=== PATIENT | male | born 1990 | race Caucasian/White ===

== ENCOUNTER 2016-12-19 03:12 | Emergency (ER) | payer SELFPAY ==
[2016-12-19] MEDS ORDERED: DIPH/PERTUSS(ACELL)/TETANUS VAC/PF 0.5 ML SYR (>=10YO) IM ONE (03:25)
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
[2016-12-19] MEDS ORDERED: LIDOCAINE 1% INJ (10 MG/ML) 10 ML MDV INJ ONE (03:50)
[2016-12-19] MEDS ORDERED: LIDOCAINE 1% INJ-PF (10 MG/ML) 30 ML SDV ONE (03:56)
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
[2016-12-19 05:06] VITALS: BP 124/88
== END 2016-12-19 05:11 | disposition home or self-care (01) ==
LOC: ER 03:12
PROC: 0HQ7XZZ Repair Abdomen Skin, External Approach (ICD-10-PCS; principal; 2016-12-19)
DX: S31.119A Laceration without foreign body of abdominal wall, unspecified quadrant without penetration into peritoneal cavity, initial encounter (principal); W26.0XXA Contact with knife, initial encounter; F17.200 Nicotine dependence, unspecified, uncomplicated
CPT/HCPCS: 71010; 74177; 90471; 90715; 99284

== ENCOUNTER 2017-07-27 18:28 | Emergency (ER) | payer MEDICAID ==
[2017-07-27] MEDS ORDERED: KETOROLAC TROMETHAMINE INJ/PF 30 MG/1 ML SDV IM ONE (19:01)
--- NOTE | 2017-07-27 19:05 | ER Document Report ---
ED Flu Like - General Chief Complaint: Low Back Pain Stated Complaint: COUGH Time Seen by Provider: 07/27/17 18:45 Mode of Arrival: Ambulatory Information source: Patient TRAVEL OUTSIDE OF THE [place] IN LAST 30 DAYS: No - HPI Patient complains to provider of: flu like symptoms Onset: Other - 3 days Notes: Patient is here with complaints of cough, sore throat, body aches, left-sided back pain is been present for about 3 days. The pack pain started after he was coughing a lot. Pain in his back is located in the left thoracic/lumbar paraspinal muscle area. It is worse with touching the area as well as coughing and movement. He denies any direct trauma to this area. He is on blood thinning medications. He denies any IV drug use. He denies any bowel or bladder dysfunction. Patient also states that he has had a sore throat for the last few days. Been feeling hot and cold and complains of generalized sensitivity to his whole body. States that he has had the flu and pneumonia in the past and he feels like he may have this again. He denies any abdominal pain. He states that he vomited twice today. The first time he noticed there was a little bit of red in the vomit. The second time he vomited there was no red and there is no coffee-ground type emesis. He is on no blood thinning medications. No rashes. No neck stiffness. No numbness, tingling, weakness. No chest pain or difficulty breathing. He denies any other complaints at this time. - Related Data Allergies/Adverse Reactions: No Known Allergies Allergy (Verified 07/27/17 18:29) Past Medical History - Social History Smoking Status: Current Every Day Smoker Family History: Reviewed & Not Pertinent Psychiatric Medical History: Reports: Hx Attention Deficit Hyperactivity Disorder, Hx Bipolar Disorder, Hx Depression - old - Immunizations Hx Diphtheria, Pertussis, Tetanus Vaccination: Yes Review of Systems - Review of Systems -: Yes All other systems reviewed and negative Physical Exam - Vital signs Vitals: Temp Pulse Resp BP Pulse Ox 99.3 F 112 H 18 121/80 97 07/27/17 18:33 07/27/17 18:33 07/27/17 18:33 07/27/17 18:33 07/27/17 18:33 - Notes Notes: GENERAL: alert, cooperative, nontoxic, no distress. HEAD: normocephalic, atraumatic EYES: conjunctiva pink without discharge, no external redness or swelling. EARS: no external swelling, no external redness NOSE: atraumatic, no external swelling MOUTH/THROAT: mucous membranes moist and pink, posterior pharynx without erythema, swelling, exudate. No trismus or drooling. NECK: soft, supple, full range of motion, no meningismus. CHEST: no distress, lungs clear and equal throughout. No wheezing, rales, rhonchi. CARDIAC: regular rate and rhythm, no murmur, normal capillary refill, normal pulses. No peripheral edema noted. ABDOMEN: soft, nontender, no pusatile mass. BACK: No CVA tenderness. Mild tenderness with mild muscle spasm along the left thoracic and lumbar paraspinal muscles. No rash. No midline tenderness step- offs or crepitus. Range of motion. EXTREMITIES: full range of motion of all extremities. No redness, no swelling. NEURO: alert and oriented A&O x 3, no focal deficits, full range of motion of all extremities. 5 out of 5 flexion and extension of the lower extremities bilaterally. Patellar and Achilles deep tendon reflexes are +2 bilaterally. Normal sensation with no saddle anesthesia. Patient can dorsiflex the great toes bilaterally. PYSCH: appropriate mood, affect. Patient is cooperative. SKIN: pink, warm, dry, no rash. Course - Re-evaluation Re-evalutation: 07/27/17 20:20 Patient is nontoxic appearing stable vitals. Patient is here with complaints of back pain, cough, sore throat. He does report vomiting twice today. He states the first time he vomited there was something bright red in his vomit but then he vomited again and there was no bright red. No obvious blood and no coffee ground. He has no reason to have any bleeding and is having no abdominal pain and has no abdominal tenderness. Back pain is reproducible along the thoracic paraspinal muscles and is likely secondary to some muscle spasm and cough. He has some viral type symptoms consistent with possible influenza or viral syndrome. Chest x-ray shows no acute abnormality and rapid strep is negative. At this point patient can be discharged home with Naprosyn and Tessalon. Instructions to rest, drink plenty fluids, follow-up if not better in the next 3-5 days. Follow-up sooner for worsening pain, fever, difficulty breathing or swallowing, severe abdominal pain, persistent vomiting, or for any further concerns. The patient has no sign or risk of cauda equina, epidural abscess/bleed, osteomyelitis, discitis, AAA, pyelonephritis. The patient is noted to have elevated blood pressure during today's emergency department visit. The patient was informed of this finding. The patient was instructed that this may be related to pre-hypertension and requires further evaluation with a primary care provider. The patient has no hypertensive symptoms at this time. The patient's emergency department workup and current diagnosis were explained to the patient and or family. Follow-up instructions were provided. Medications if prescribed were discussed. Instructions for when to return to the emergency department including specific worrisome symptoms were discussed with the patient and/or family. - Vital Signs Vital signs: Temp Pulse Resp BP Pulse Ox 99.3 F 112 H 18 121/80 97 07/27/17 18:33 07/27/17 18:33 07/27/17 18:33 07/27/17 18:33 07/27/17 18:33 - Diagnostic Test Radiology reviewed: Image reviewed, Reports reviewed - Chest x-ray negative Discharge - Discharge Clinical Impression: Viral syndrome Condition: Stable Disposition: HOME, SELF-CARE Instructions: Low Back Pain ([facility]), Viral Syndrome ([facility]), Family Physicians / Practices Additional Instructions: Take medications as prescribed. You may also take Tylenol as needed for pain. Drink plenty of fluids. Follow-up with your doctor if not better in 3-5 days, sooner for worsening pain, fever, difficulty breathing or swallowing, persistent vomiting, severe abdominal pain, or for any further concerns. Your blood pressure was elevated during today's visit. Have this rechecked with your doctor. Prescriptions: Benzonatate [Tessalon Perle 100 mg Capsule] 100 mg PO Q8HP PRN #20 cap PRN Reason: Naproxen [Naprosyn] 500 mg PO BID #20 tablet Forms: Elevated Blood Pressure, Smoking Cessation Education Referrals: [facility] [Provider Group] - Follow up as needed
--- NOTE | 2017-07-27 20:09 | RADIOLOGY REPORT (SQ) ---
EXAM DESCRIPTION: CHEST 2 VIEWS COMPLETED DATE/TIME: 07/27/2017 7:22 pm REASON FOR STUDY: cough COMPARISON: None. EXAM PARAMETERS: NUMBER OF VIEWS: two views TECHNIQUE: Digital Frontal and Lateral radiographic views of the chest acquired. RADIATION DOSE: NA LIMITATIONS: none FINDINGS: LUNGS AND PLEURA: No opacities, masses or pneumothorax. No pleural effusion. MEDIASTINUM AND HILAR STRUCTURES: No masses or contour abnormalities. HEART AND VASCULAR STRUCTURES: Heart normal size. No evidence for failure. BONES: No acute findings. HARDWARE: None in the chest. OTHER: No other significant finding. IMPRESSION: NO ACUTE RADIOGRAPHIC FINDING IN THE CHEST. TECHNICAL DOCUMENTATION: JOB ID: [id number]- All Rights Reserved Reading location - IP/workstation name: [email or web address]
[2017-07-27 20:36] VITALS: BP 121/76
== END 2017-07-27 20:37 | disposition home or self-care (01) ==
LOC: ER 18:28
DX: B34.9 Viral infection, unspecified (principal); R05 Cough; J02.9 Acute pharyngitis, unspecified; M62.830 Muscle spasm of back; M54.5 Low back pain; M54.6 Pain in thoracic spine; R11.10 Vomiting, unspecified; F17.200 Nicotine dependence, unspecified, uncomplicated; R03.0 Elevated blood-pressure reading, without diagnosis of hypertension; Z87.01 Personal history of pneumonia (recurrent)
CPT/HCPCS: 99283; 96372; 87070; 87880; 71046; J1885

== ENCOUNTER 2017-11-26 19:12 | Emergency (ER) | payer MEDICAID ==
[2017-11-26] MEDS ORDERED: LORAZEPAM 1 MG TABLET PO ONE (20:44)
[2017-11-26] MEDS ORDERED: HALOPERIDOL 5 MG TABLET PO ONE (20:44)
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
[2017-11-26 20:56] LABS: ABSOLUTE BASOPHILS # (AUTO) 0.1 10^3/uL (0.0-0.2); ABSOLUTE EOSINOPHILS # (AUTO) 0.2 10^3/uL (0.0-0.6); ABSOLUTE LYMPHOCYTES (AUTO) 1.9 10^3/uL (0.5-4.7); ABSOLUTE MONOCYTES (AUTO) 0.6 10^3/uL (0.1-1.4); ABSOLUTE NEUT (AUTO) 4.4 10^3/uL (1.7-8.2); BASOPHILS % (AUTO) 1.1 % (0-2); EOSINOPHILS % (AUTO) 2.6 % (0-6); HEMATOCRIT 41.5 % (37.9-51.0); HEMOGLOBIN 14.5 g/dL (13.5-17.0); LYMPHOCYTES % (AUTO) 26.6 % (13-45); MEAN CORPUSCULAR HEMOGLOBIN 30.1 pg (27.0-33.4); MEAN CORPUSCULAR VOLUME 86 fl (80-97); MONOCYTES % (AUTO) 8.7 % (3-13); PLATELET COUNT 259 10^3/uL (150-450); RED BLOOD COUNT 4.83 10^6/uL (4.35-5.55); RED CELL DISTRIBUTION WIDTH 12.8 % (11.5-14.0); TOTAL CELLS COUNTED % (AUTO) 100 %; WHITE BLOOD COUNT 7.3 10^3/uL (4.0-10.5)
[2017-11-26 21:16] LABS: ALANINE AMINOTRANSFERASE 23 U/L (21-72); ALBUMIN 3.9 g/dL (3.5-5.0); ALKALINE PHOSPHATASE 54 U/L (38-126); ANION GAP 11 (5-19); ASPARTATE AMINO TRANSFERASE 21 U/L (17-59); BILIRUBIN,DIRECT 0.3 mg/dL (0.0-0.4); BILIRUBIN,TOTAL 0.7 mg/dL (0.2-1.3); BLOOD UREA NITROGEN 19 mg/dL (7-20); CALCIUM 9.4 mg/dL (8.4-10.2); CARBON DIOXIDE 23 mmol/L (22-30); CHLORIDE 112 mmol/L (98-107); GLUCOSE 89 mg/dL (75-110); POTASSIUM 3.6 mmol/L (3.6-5.0); TOTAL PROTEIN 6.3 g/dL (6.3-8.2)
[2017-11-26 21:26] LABS: ACETAMINOPHEN < 10 ug/mL (10-30); ALCOHOL < 10 mg/dL (NONE DETECTED); SALICYLATE < 1.0 mg/dL (2.0-20.0)
[2017-11-26 21:48] LABS: APPEARANCE,URINE CLEAR; BILIRUBIN,URINE NEGATIVE (NEGATIVE); GLUCOSE, URINE NEGATIVE (NEGATIVE); KETONES,URINE TRACE mg/dL (NEGATIVE); LEUKOCYTE ESTERASE,URINE NEGATIVE (NEGATIVE); NITRITE,URINE NEGATIVE (NEGATIVE); PROTEIN,URINE NEGATIVE (NEGATIVE); URINE SPECIFIC GRAVITY 1.026
[2017-11-26 21:49] LABS: COLOR,URINE YELLOW
[2017-11-26 22:05] LABS: URINE AMPHETAMINES SCREEN NEGATIVE; URINE BARBITURATES SCREEN NEGATIVE; URINE BENZODIAZEPINES SCREEN NEGATIVE; URINE COCAINE SCREEN NEGATIVE; URINE MARIJUANA (THC) SCREEN NEGATIVE; URINE METHADONE SCREEN NEGATIVE; URINE PHENCYCLIDINE SCREEN NEGATIVE
--- NOTE | 2017-11-27 05:35 | EKG REPORT ---
SEVERITY:- ABNORMAL ECG - SINUS RHYTHM PROBABLE LEFT ATRIAL ABNORMALITY PROBABLE LEFT VENTRICULAR HYPERTROPHY : Confirmed by: Jeevan Rodarte MD 27-Nov-2017 05:34:41
--- NOTE | 2017-11-27 10:47 | ER Document Report ---
Doctor's Note Notes: 11/27/17 10:43 Rounds: Chart reviewed and patient sleeping so not awakened. Patient is being evaluated for bipolar disorder, erratic behavior, agitation, delusions. Vital signs are all normal. Lab studies were all essentially normal. Patient appears to be medically stable for transfer or discharge. Lacey Fischer MD
[2017-11-27 11:14] VITALS: BP 125/83
[2017-11-27] MEDS ORDERED: BENZTROPINE MESYLATE 1 MG TABLET PO ONE (12:37)
[2017-11-27] MEDS ORDERED: CHLORPROMAZINE HCL 50 MG TABLET PO ONE (12:37)
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
== END 2017-11-27 13:11 | disposition home or self-care (01) ==
LOC: ER 19:12
DX: R45.1 Restlessness and agitation (principal); F31.9 Bipolar disorder, unspecified; F29 Unspecified psychosis not due to a substance or known physiological condition; F17.200 Nicotine dependence, unspecified, uncomplicated
CPT/HCPCS: 93005; 99285; 36415; 80307 ×4; 85025; 80053; 81001; 93010; J3490 ×3

== ENCOUNTER 2018-01-16 16:08 | Emergency (ER) | payer SELFPAY ==
[2018-01-16] MEDS ORDERED: QUETIAPINE FUMARATE 25 MG TABLET PO PRN (16:52)
--- NOTE | 2018-01-16 16:54 | ER Document Report ---
ED Medical Screen (RME) - General Chief Complaint: Psych Problem Stated Complaint: PSYCH EVAL Time Seen by Provider: 01/16/18 16:39 TRAVEL OUTSIDE OF THE [place] IN LAST 30 DAYS: No - HPI Patient complains to provider of: Schizophrenia Onset: Other - This 27-year-old man with a history of schizophrenia was recently [facility] from [facility] and is dealing with multiple life issues, he notes that he is currently unstable. His auditory hallucinations are slightly worse than usual but they are improved if he is taking his Haldol which she is scheduled to take twice a day. He has been smoking and occasionally drinking since leaving penitentiary and thinks it may be making things worse. He is also having disagreements with his "baby mama" - Related Data Allergies/Adverse Reactions: No Known Allergies Allergy (Verified 07/27/17 18:29) Past Medical History - Social History Chew tobacco use (# tins/day): No Frequency of alcohol use: Occasional Drug Abuse: Marijuana Renal/ Medical History: Denies: Hx Peritoneal Dialysis Psychiatric Medical History: Reports: Hx Attention Deficit Hyperactivity Disorder, Hx Bipolar Disorder, Hx Depression, Hx Schizophrenia - Immunizations Hx Diphtheria, Pertussis, Tetanus Vaccination: Yes Physical Exam - Vital signs Vitals: Temp Pulse Resp BP Pulse Ox 98.5 F 98 20 141/99 H 100 01/16/18 16:37 01/16/18 16:37 01/16/18 16:37 01/16/18 16:37 01/16/18 16:37 Course - Re-evaluation Re-evalutation: 01/16/18 16:54 27-year-old schizophrenic who presents for some worsening auditory hallucinations but no desire to harm himself or anyone else at this moment. It is unclear whether or not he is in obvious danger to anyone, will defer IVC at this time. I have greeted and performed a rapid initial assessment of this patient. A comprehensive ED assessment and evaluation of the patient, analysis of test results and completion of the medical decision making process will be conducted by additional ED providers - Vital Signs Vital signs: Temp Pulse Resp BP Pulse Ox 98.5 F 98 20 141/99 H 100 01/16/18 16:37 01/16/18 16:37 01/16/18 16:37 01/16/18 16:37 01/16/18 16:37
[2018-01-16] MEDS: HALOPERIDOL 5 MG TABLET PO SCH (17:04)
[2018-01-16 17:13] LABS: ABSOLUTE BASOPHILS # (AUTO) 0.1 10^3/uL (0.0-0.2); ABSOLUTE EOSINOPHILS # (AUTO) 0.4 10^3/uL (0.0-0.6); ABSOLUTE LYMPHOCYTES (AUTO) 1.8 10^3/uL (0.5-4.7); ABSOLUTE MONOCYTES (AUTO) 0.5 10^3/uL (0.1-1.4); ABSOLUTE NEUT (AUTO) 6.3 10^3/uL (1.7-8.2); BASOPHILS % (AUTO) 0.8 % (0-2); EOSINOPHILS % (AUTO) 4.4 % (0-6); HEMATOCRIT 44.8 % (37.9-51.0); HEMOGLOBIN 15.8 g/dL (13.5-17.0); LYMPHOCYTES % (AUTO) 20.1 % (13-45); MEAN CORPUSCULAR HEMOGLOBIN 30.8 pg (27.0-33.4); MEAN CORPUSCULAR HGB CONC 35.3 g/dL (32.0-36.0); MEAN CORPUSCULAR VOLUME 87 fl (80-97); MONOCYTES % (AUTO) 5.8 % (3-13); PLATELET COUNT 175 10^3/uL (150-450); RED BLOOD COUNT 5.14 10^6/uL (4.35-5.55); SEGMENTED NEUTROPHILS % (AUTO) 68.9 % (42-78); TOTAL CELLS COUNTED % (AUTO) 100 %; WHITE BLOOD COUNT 9.1 10^3/uL (4.0-10.5)
[2018-01-16 17:25] LABS: ACETAMINOPHEN < 10 ug/mL (10-30); ALANINE AMINOTRANSFERASE 56 U/L (21-72); ALBUMIN 4.6 g/dL (3.5-5.0); ALCOHOL < 10 mg/dL (NONE DETECTED); ALKALINE PHOSPHATASE 65 U/L (38-126); ANION GAP 12 (5-19); ASPARTATE AMINO TRANSFERASE 24 U/L (17-59); BILIRUBIN,DIRECT 0.1 mg/dL (0.0-0.4); BILIRUBIN,TOTAL 0.4 mg/dL (0.2-1.3); BLOOD UREA NITROGEN 16 mg/dL (7-20); CALCIUM 9.7 mg/dL (8.4-10.2); CARBON DIOXIDE 27 mmol/L (22-30); CHLORIDE 102 mmol/L (98-107); GLUCOSE 96 mg/dL (75-110); POTASSIUM 4.1 mmol/L (3.6-5.0); SALICYLATE < 1.0 mg/dL (2.0-20.0); SODIUM 141.3 mmol/L (137-145); TOTAL PROTEIN 7.2 g/dL (6.3-8.2)
[2018-01-16 17:30] LABS: URINE AMPHETAMINES SCREEN NEGATIVE; URINE BARBITURATES SCREEN NEGATIVE; URINE BENZODIAZEPINES SCREEN NEGATIVE; URINE COCAINE SCREEN NEGATIVE; URINE MARIJUANA (THC) SCREEN NEGATIVE; URINE METHADONE SCREEN NEGATIVE; URINE PHENCYCLIDINE SCREEN NEGATIVE
[2018-01-16 17:35] LABS: AMORPHOUS SEDIMENT,URINE TRACE /HPF; APPEARANCE,URINE TURBID; BILIRUBIN,URINE NEGATIVE (NEGATIVE); COLOR,URINE YELLOW; GLUCOSE, URINE NEGATIVE (NEGATIVE); KETONES,URINE NEGATIVE (NEGATIVE); LEUKOCYTE ESTERASE,URINE NEGATIVE (NEGATIVE); NITRITE,URINE NEGATIVE (NEGATIVE); PROTEIN,URINE NEGATIVE (NEGATIVE); URINE SPECIFIC GRAVITY 1.016; UROBILINOGEN,URINE NEGATIVE mg/dL (<2.0)
--- NOTE | 2018-01-16 17:55 | ER Document Report ---
ED Psych Disorder / Suicide - General Chief Complaint: Psych Problem Stated Complaint: PSYCH EVAL Time Seen by Provider: 01/16/18 16:39 Notes: 27-year-old male to the emergency department wanting to be evaluated and get straightened out on his medications. Patient reports that he has been incarcerated for approximately 3 weeks before calling 911 to many times. States that he was getting some medications while incarcerated. States that his "baby mama" while taking back home so she wants him to "come to the ER at [place] to get straightened out". Patient denies any suicidal ideation or homicidal ideation. Denies any active hallucination. TRAVEL OUTSIDE OF THE [place] IN LAST 30 DAYS: No - HPI Patient complains to provider of: No: Aggression, Agitated, Overdose, Suicidal ideation, Suicidal plan, Suicidal attempt, Self injury - Related Data Allergies/Adverse Reactions: No Known Allergies Allergy (Verified 07/27/17 18:29) Past Medical History - General Information source: Patient - Social History Smoking Status: Current Every Day Smoker Chew tobacco use (# tins/day): No Frequency of alcohol use: Occasional Drug Abuse: Marijuana, Methamphetamine Lives with: Family Family History: Reviewed & Not Pertinent Patient has suicidal ideation: No Patient has homicidal ideation: No Renal/ Medical History: Denies: Hx Peritoneal Dialysis Psychiatric Medical History: Reports: Hx Attention Deficit Hyperactivity Disorder, Hx Bipolar Disorder, Hx Depression, Hx Schizophrenia - Immunizations Hx Diphtheria, Pertussis, Tetanus Vaccination: Yes Review of Systems - Review of Systems Notes: Constitutional: denies: Chills, Diaphoresis, Fever, Malaise, Weakness EENT: denies: Eye discharge, Blurred vision, Tearing, Double vision, Nose congestion, Nose discharge, Throat swelling, Mouth pain Cardiovascular: denies: Palpitations, Heart racing, Orthopnea, Dyspnea, Chest pain Respiratory: denies: Cough, Hurts to breathe, Wheezing, Shortness of breath Gastrointestinal: denies: Abdominal pain, Diarrhea, Nausea, Vomiting, Black stools, bright red blood in stool Genitourinary: denies: Burning, Dysuria, Discharge, Frequency, Flank pain, Hematuria Musculoskeletal: denies: Joint pain, Joint swelling, Muscle pain, Muscle stiffness, back pain Hematologic/Lymphatic: denies: Anemia, Easy bleeding, Easy bruising, Blood clots Neurological/Psychological: denies: Confusion, Dementia, Depression, Loss of consciousness Skin: No lesions, no masses, no skin breakdown, no abscesses Physical Exam - Vital signs Vitals: Temp Pulse Resp BP Pulse Ox 98.5 F 98 20 141/99 H 100 01/16/18 16:37 01/16/18 16:37 01/16/18 16:37 01/16/18 16:37 01/16/18 16:37 Interpretation: Normal - General General appearance: Appears well, Alert - HEENT Head: Normocephalic, Atraumatic Eyes: Normal Pupils: PERRL - Respiratory Respiratory status: No respiratory distress Chest status: Nontender Breath sounds: Normal Chest palpation: Normal - Cardiovascular Rhythm: Regular Heart sounds: Normal auscultation Murmur: No - Abdominal Inspection: Normal Distension: No distension Bowel sounds: Normal Tenderness: Nontender Organomegaly: No organomegaly - Back Back: Normal, Nontender - Extremities General upper extremity: Normal inspection, Nontender, Normal color, Normal ROM , Normal temperature General lower extremity: Normal inspection, Nontender, Normal color, Normal ROM , Normal temperature, Normal weight bearing. No: Mann's sign - Neurological Neuro grossly intact: Yes Cognition: Normal Orientation: AAOx4 Jocy Coma Scale Eye Opening: Spontaneous [place] Coma Scale Verbal: Oriented Jocy Coma Scale Motor: Obeys Commands Jocy Coma Scale Total: 15 Speech: Normal Motor strength normal: LUE, RUE, LLE, RLE Sensory: Normal - Psychological Associated symptoms: Normal affect, Anxious - Skin Skin Temperature: Warm Skin Moisture: Dry Skin Color: Normal Course - Re-evaluation Re-evalutation: 01/16/18 23:00 At this time patient does not meet criteria for IVCD. Mental health is already gone for the day. I am going to give him some of his regular medicines. Patient is free to go whenever he wants. If not, we will have mental health see him tomorrow. - Vital Signs Vital signs: Temp Pulse Resp BP Pulse Ox 98.5 F 98 20 141/99 H 100 01/16/18 16:37 01/16/18 16:37 01/16/18 16:37 01/16/18 16:37 01/16/18 16:37 - Laboratory Result Diagrams: 01/16/18 16:56 01/16/18 16:56 Laboratory results interpreted by me: 01/16/18 16:56 Salicylates < 1.0 L Acetaminophen < 10 L
--- NOTE | 2018-01-16 21:45 | EKG REPORT ---
SEVERITY:- BORDERLINE ECG - SINUS RHYTHM LA ABNORMALITY. : Confirmed by: Jeevan Rodarte MD 16-Jan-2018 21:44:59
--- NOTE | 2018-01-17 07:56 | PSYCHOLOGICAL NOTE ---
Psych Note - Psych Note Date seen by psych provider: 01/17/18 Time seen by psych provider: 07:00 Psych Note: Reason for Consult: patient's request for psychiatric evaluation 27-year-old male to the emergency department wanting to be evaluated and get straightened out on his medications. Patient reports that he has been incarcerated for approximately 3 weeks before calling 911 to many times. Patient reports he was brought to [facility] ED by "Agnieszka" disclosing he told [facility] staff he needed to have a mental health evaluation. He discloses that he needs his medications. When asked how long he been off medication he states since November 28. When asked what medications the patient normally takes he states Adderall. He is unable to identify any other medication; "i just need my meds..because I am certified crazy." Patient denies any thoughts of harming himself/others or seeing/hearing things that confuse her scare him. Patient confirms he went to senior care for calling 911 too many times. When asked why he was calling 911 so much, he stated that he needed his medications and cigarettes. He confirms that he understands that this was an appropriate use of emergency services. He confirms he is established with [facility] and can do a walk-in today for his medications. Clinician asked if the patient had recently been to [facility] he stated prior to going into senior care. He confirms he missed used his medications however states he "will not do that now." Patient confirms he would like information on substance abuse treatment. Patient is alert and orientated to person, place, time and circumstance. Mood is euthymic with congruent affect. Patient denies suicidal homicidal ideation. Delusions are absent behaviors congruent with an intact reality based presentation i.e. organized linear thought process. Eye contact was well- maintained. Conversational speech was within normal rate, tone and prosody. Intellectual abilities appear to be within the average range. Attention and concentration are fair. Insight, judgment, impulse control are fair. Behavior health team contacted [facility] and confirm the patient has been prescribed Adderall 20 mg twice daily, fluoxetine 10 mg every morning, and Rexulti 4mg daily however the patient is not filled prescription since September. 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 Patient is recommended to walk into his outpatient mental health provider, [facility], today for assistance on continued medication management. Patient denies any thoughts of wanting to harm himself or others it is not demonstrating any behaviors indicating he is suffering from internal stimuli. Patient does not meet IVC criteria per [place] GS 122C. Patient has been provided substance abuse resources and highly encouraged to follow through with treatment. Dr. Webster was consulted and the care management this patient; attending physician is agreement with recommendations and disposition.
[2018-01-17] MEDS: HALOPERIDOL 5 MG TABLET PO SCH (09:36)
--- NOTE | 2018-01-17 09:39 | ER Document Report ---
Doctor's Note Notes: 01/17/18 09:38 Patient was seen and evaluated by myself. No complaints from the patient. No issues last night with nursing staff. I spoke with behavioral health team. They are agreeable with the patient being discharged as long as he is medically cleared. The patient is able to go to outpatient mental health as a walk-in today for his medication. Patient understands the plan of care and is agreeable with discharge.
[2018-01-17 10:16] VITALS: BP 146/95
== END 2018-01-17 10:16 | disposition home or self-care (01) ==
LOC: ER 16:08
DX: F19.10 Other psychoactive substance abuse, uncomplicated (principal); F15.10 Other stimulant abuse, uncomplicated; F20.9 Schizophrenia, unspecified; F17.200 Nicotine dependence, unspecified, uncomplicated
CPT/HCPCS: 36415; 80053; 80307; 81001; 85025; 93005; 93010; 99285

== ENCOUNTER 2018-01-17 15:38 | Emergency (ER) | payer SELFPAY ==
--- NOTE | 2018-01-17 17:03 | ER Document Report ---
ED Medical Screen (RME) - General Chief Complaint: Psych Problem Stated Complaint: PSYCH EVAL Time Seen by Provider: 01/17/18 16:37 Notes: Patient is a 27-year-old male with bipolar disorder and schizophrenia that presents to the emergency department for chief complaint of suicidal ideations. Patient was recently seen this morning, for similar symptoms, was discharged to follow-up with [facility], they stated to come back here to have medications filled. He was started on Haldol 2 mg, twice daily, by the half-way physician, he is just started taking that today, he states he still feeling suicidal, without a plan currently, he has been depressed, and states that he currently has nowhere to live, that he is homeless, family will not help him. He states has been on medications in the past, does not recall there doses, or the names of them, but they have helped. He denies any illicit drug use with the exception of marijuana, and he does drink alcohol but has not had any today that he reports. ROS: Unless otherwise stated in this report the patient's positive and negative responses for review of systems for constitutional, eyes, ENT, cardiovascular, respiratory, gastrointestinal, neurological, genitourinary, musculoskeletal, and integumentary systems and related systems to the presenting problem are either as stated in the HPI or were not pertinent or were negative for the symptoms and/or complaints related to the presenting medical problem. PHYSICAL EXAMINATION: Vital signs reviewed. GENERAL: Well-appearing, well-nourished and in no acute distress. HEAD: Atraumatic, normocephalic. EYES: Pupils equal round extraocular movements intact, conjunctiva are normal. ENT: Nares patent NECK: Normal range of motion CV: Heart rate tachycardic, regular rhythm LUNGS: No respiratory distress Musculoskeletal: Normal range of motion NEUROLOGICAL: Normal speech PSYCH: Flat affect, pacing in the room, will not sit still MDM: Patient seen and examined for rapid initial assessment. Vital signs reviewed. A comprehensive ED assessment and evaluation of the patient, analysis of test results and completion of the medical decision making process will be conducted by additional ED providers. *Note is created using voice recognition software and may contain spelling, syntax or grammatical errors. TRAVEL OUTSIDE OF THE U[place]S. IN LAST 30 DAYS: No - Related Data Allergies/Adverse Reactions: No Known Allergies Allergy (Verified 01/17/18 16:52) Past Medical History - Social History Frequency of alcohol use: None Drug Abuse: None, Marijuana Renal/ Medical History: Denies: Hx Peritoneal Dialysis Psychiatric Medical History: Reports: Hx Attention Deficit Hyperactivity Disorder, Hx Bipolar Disorder, Hx Depression, Hx Schizophrenia - Immunizations Hx Diphtheria, Pertussis, Tetanus Vaccination: Yes Physical Exam - Vital signs Vitals: Temp Pulse Resp BP Pulse Ox 98.9 F 129 H 18 140/101 H 99 01/17/18 15:42 01/17/18 15:42 01/17/18 15:42 01/17/18 15:42 01/17/18 15:42 Course - Vital Signs Vital signs: Temp Pulse Resp BP Pulse Ox 98.9 F 129 H 18 140/101 H 99 01/17/18 15:42 01/17/18 15:42 01/17/18 15:42 01/17/18 15:42 01/17/18 15:42
[2018-01-17 17:36] LABS: ABSOLUTE BASOPHILS # (AUTO) 0.1 10^3/uL (0.0-0.2); ABSOLUTE EOSINOPHILS # (AUTO) 0.4 10^3/uL (0.0-0.6); ABSOLUTE LYMPHOCYTES (AUTO) 1.7 10^3/uL (0.5-4.7); ABSOLUTE MONOCYTES (AUTO) 0.5 10^3/uL (0.1-1.4); ABSOLUTE NEUT (AUTO) 6.7 10^3/uL (1.7-8.2); BASOPHILS % (AUTO) 1.2 % (0-2); HEMATOCRIT 45.7 % (37.9-51.0); HEMOGLOBIN 16.2 g/dL (13.5-17.0); LYMPHOCYTES % (AUTO) 18.5 % (13-45); MEAN CORPUSCULAR HEMOGLOBIN 30.9 pg (27.0-33.4); MEAN CORPUSCULAR HGB CONC 35.4 g/dL (32.0-36.0); MEAN CORPUSCULAR VOLUME 87 fl (80-97); MONOCYTES % (AUTO) 5.1 % (3-13); PLATELET COUNT 198 10^3/uL (150-450); RED BLOOD COUNT 5.23 10^6/uL (4.35-5.55); SEGMENTED NEUTROPHILS % (AUTO) 71.2 % (42-78); TOTAL CELLS COUNTED % (AUTO) 100 %; WHITE BLOOD COUNT 9.4 10^3/uL (4.0-10.5)
[2018-01-17 17:49] LABS: APPEARANCE,URINE CLEAR; BILIRUBIN,URINE NEGATIVE (NEGATIVE); COLOR,URINE YELLOW; GLUCOSE, URINE NEGATIVE (NEGATIVE); KETONES,URINE NEGATIVE (NEGATIVE); LEUKOCYTE ESTERASE,URINE NEGATIVE (NEGATIVE); NITRITE,URINE NEGATIVE (NEGATIVE); PROTEIN,URINE NEGATIVE (NEGATIVE); URINE SPECIFIC GRAVITY 1.021; UROBILINOGEN,URINE NEGATIVE mg/dL (<2.0)
[2018-01-17 17:55] LABS: ALANINE AMINOTRANSFERASE 47 U/L (21-72); ALBUMIN 4.9 g/dL (3.5-5.0); ALKALINE PHOSPHATASE 65 U/L (38-126); ANION GAP 10 (5-19); ASPARTATE AMINO TRANSFERASE 21 U/L (17-59); BILIRUBIN,DIRECT 0.2 mg/dL (0.0-0.4); BILIRUBIN,TOTAL 0.4 mg/dL (0.2-1.3); BLOOD UREA NITROGEN 19 mg/dL (7-20); CALCIUM 9.8 mg/dL (8.4-10.2); CARBON DIOXIDE 31 mmol/L (22-30); CHLORIDE 100 mmol/L (98-107); GLUCOSE 90 mg/dL (75-110); POTASSIUM 4.2 mmol/L (3.6-5.0); SODIUM 141.4 mmol/L (137-145); TOTAL PROTEIN 7.7 g/dL (6.3-8.2)
[2018-01-17 17:56] LABS: ACETAMINOPHEN < 10 ug/mL (10-30); ALCOHOL < 10 mg/dL (NONE DETECTED); SALICYLATE < 1.0 mg/dL (2.0-20.0)
[2018-01-17 17:58] LABS: URINE AMPHETAMINES SCREEN NEGATIVE; URINE BARBITURATES SCREEN NEGATIVE; URINE BENZODIAZEPINES SCREEN NEGATIVE; URINE COCAINE SCREEN NEGATIVE; URINE MARIJUANA (THC) SCREEN NEGATIVE; URINE METHADONE SCREEN NEGATIVE; URINE PHENCYCLIDINE SCREEN NEGATIVE
--- NOTE | 2018-01-17 19:15 | ER Document Report ---
ED Psych Disorder / Suicide - General Chief Complaint: Psych Problem Stated Complaint: PSYCH EVAL Time Seen by Provider: 01/17/18 16:37 Mode of Arrival: Ambulatory TRAVEL OUTSIDE OF THE [place] IN LAST 30 DAYS: No - HPI Patient complains to provider of: Other - This 27-year-old man presents for evaluation of worsening paranoia and hallucinations in the setting of having schizophrenia. He notes that his hallucinations are worsening and he is worried that he might do something that he does not mean to or go out of control. When asked if he has any desire to harm himself or anyone else he states no. Previously this patient was seen yesterday and subsequently medically cleared. He has no medical complaints at this time otherwise. - Related Data Allergies/Adverse Reactions: No Known Allergies Allergy (Verified 01/17/18 16:52) Past Medical History - General Information source: Patient - Social History Smoking Status: Current Every Day Smoker Frequency of alcohol use: None Drug Abuse: None, Marijuana Family History: Reviewed & Not Pertinent Patient has suicidal ideation: No Patient has homicidal ideation: No Renal/ Medical History: Denies: Hx Peritoneal Dialysis Psychiatric Medical History: Reports: Hx Attention Deficit Hyperactivity Disorder, Hx Bipolar Disorder, Hx Depression, Hx Schizophrenia - Immunizations Hx Diphtheria, Pertussis, Tetanus Vaccination: Yes Review of Systems - Review of Systems -: Yes All other systems reviewed and negative Physical Exam - Vital signs Vitals: Temp Pulse Resp BP Pulse Ox 98.9 F 129 H 18 140/101 H 99 01/17/18 15:42 01/17/18 15:42 01/17/18 15:42 01/17/18 15:42 01/17/18 15:42 - General General appearance: Appears well In distress: None - HEENT Head: Normocephalic Eyes: Normal Conjunctiva: Normal Cornea: Normal Extraocular movements intact: Yes Eyelashes: Normal - Respiratory Respiratory status: No respiratory distress Chest status: Nontender Breath sounds: Normal Chest palpation: Normal - Cardiovascular Rhythm: Tachycardia Heart sounds: Normal auscultation Murmur: No - Abdominal Inspection: Normal Distension: No distension Tenderness: Nontender - Back Back: Normal - Extremities General upper extremity: Normal inspection, Nontender, Normal strength, Normal temperature General lower extremity: Normal inspection, Nontender, Normal strength, Normal temperature - Neurological Neuro grossly intact: Yes Cognition: Normal Orientation: AAOx4 Jocy Coma Scale Eye Opening: Spontaneous Jocy Coma Scale Verbal: Oriented [place] Coma Scale Motor: Obeys Commands [place] Coma Scale Total: 15 Speech: Normal Motor strength normal: LUE, RUE, LLE, RLE - Psychological Associated symptoms: Other - Flat affect Course - Re-evaluation Re-evalutation: 01/18/18 04:09 He was a 27-year-old schizophrenic who presents for examination of worsening hallucinations and concerned that he may do something unintentionally that may harm somebody. He denies any desire to harm himself or anyone else at this moment but says that he is not thinking clearly and needs some help as he recently just got out of retirement. This patient has been evaluated earlier yesterday for very similar constellation of symptoms with concern that he needs help as an inpatient. We will defer to the mental health team, will plan for psychiatric consultation. We will continue to monitor emergency department and reassess as necessary. - Vital Signs Vital signs: Temp Pulse Resp BP Pulse Ox 98.9 F 109 H 16 121/73 97 01/17/18 19:30 01/17/18 19:30 01/17/18 19:30 01/17/18 19:30 01/17/18 19:30 - Laboratory Result Diagrams: 01/17/18 17:15 01/17/18 17:15 Laboratory results interpreted by me: 01/17/18 17:15 Carbon Dioxide 31 H Salicylates < 1.0 L Acetaminophen < 10 L Discharge - Discharge Clinical Impression: Paranoia, Hallucination Condition: Stable
--- NOTE | 2018-01-17 23:18 | EKG REPORT ---
SEVERITY:- ABNORMAL ECG - SINUS RHYTHM RAA, CONSIDER BIATRIAL ABNORMALITIES : Confirmed by: Romeo Armas 17-Jan-2018 23:16:58
[2018-01-18 08:35] VITALS: BP 123/65
[2018-01-18] MEDS ORDERED: HALOPERIDOL 5 MG TABLET PO SCH (10:00)
--- NOTE | 2018-01-18 10:46 | ER Document Report ---
Doctor's Note Notes: 01/18/18 10:41 This is a 27-year-old man with schizoaffective disorder with bipolar features who presented to the emergency room with paranoia and hallucinations in the setting of medicine noncompliance. Labs and vital signs have been stable. Patient has been seen and cleared by psychiatry patient to follow-up. Will send the patient home on Haldol and Cogentin and he will follow-up at [facility]. 01/18/18 10:46 01/18/18 10:47 01/18/18 15:47
[2018-01-18] MEDS ORDERED: BENZTROPINE MESYLATE 1 MG TABLET PO ONE (11:20)
[2018-01-18] MEDS ORDERED: HALOPERIDOL DECANOATE INJ 100 MG/1 ML VIAL IM ONE (11:21)
--- NOTE | 2018-01-18 15:56 | PSYCHOLOGICAL NOTE ---
Psych Note - Psych Note Date seen by psych provider: 01/18/18 Time seen by psych provider: 07:00 Psych Note: Reason for Consult: reported psychosis and mediation This 27-year-old man presents for evaluation of worsening paranoia and hallucinations in the setting of having schizophrenia. He notes that his hallucinations are worsening and he is worried that he might do something that he does not mean to or go out of control. When asked if he has any desire to harm himself or anyone else he states no. Patient discloses that he went to [facility] however his insurance so was unable to receive services. They reported that he needed to come back to [facility] for medication. He states he currently has nowhere to live. He continued to report that he was abusing his prescription of Adderall however states that that was before he went to snf. He denies current misuse. Patient does admit to using cocaine approximately 2 days ago. He reports concern that his family does not care about him. Clinician spoke with Agnieszka at bedside per patient's request. Agnieszka is mother of the patient's ex-girlfriend. She reports concern that the patient has always had mental health with substance abuse. She is concerned that the patient needs help because he has nowhere to live and cannot come and live with her. She discloses that she will attempt to take the patient to [facility] to try to get him admitted there. Clinician did explain that the patient can go voluntarily however he does not meet involuntary commitment criteria because it is substance abuse and social i.e. homeless. Patient is alert and orientated to person, place, time and circumstance. Mood is euthymic with congruent affect. Patient is noted to have psychomotor agitation; pacing. Patient denies suicidal and homicidal ideation. Patient endorses hallucinations and paranoia however patient's presentation and discussion with clinician does not support this endorsement. Delusions are absent behaviors congruent with an intact reality based presentation i.e. organized linear thought process. Eye contact was fair. Conversational speech was within normal rate, tone and prosody. Intellectual abilities appear to be within the average range. Attention and concentration are fair. Insight , judgment, impulse control are fair. Medication recommendations per [facility]'s contracted psychiatrist Dr. 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 [facility] on continued medication management, he confirm he did but they were unable to help him because his insurance lapsed. Patient denies any thoughts of wanting to harm himself or others it is not demonstrating any behaviors indicating he is responding to internal stimuli (ie organized and linear conversations, fair eye contact). Patient does not meet IVC criteria per [place] GS 122C. Patient admits to using cocaine 2 days ago but denies current misuse of his Adderall reporting he "will not do that anymore." Patient was provided medication for the snf upon discharge. Patient's main concern, other then getting medication, is that he is currently no where to live. Patient was administered Haldol Decanoate shot to assist with mental health symptoms and is recommended to follow up with substance abuse treatment. Dr. Webster was consulted and the care management this patient; attending physician is agreement with recommendations and disposition.
== END 2018-01-18 16:59 | disposition home or self-care (01) ==
LOC: ER 15:38
DX: F22 Delusional disorders (principal); F19.10 Other psychoactive substance abuse, uncomplicated; F25.0 Schizoaffective disorder, bipolar type; F17.200 Nicotine dependence, unspecified, uncomplicated
CPT/HCPCS: 93005; 99284; 96372; 36415; 80307 ×4; 85025; 80053; 81001; 93010; J1631